=== PATIENT | female | born 1990 | race Caucasian/White ===

== ENCOUNTER 2018-05-13 10:40 | Emergency (ER) | payer SELFPAY ==
--- NOTE | 2018-05-13 11:09 | EDPHYS ---
Physician Documentation [facility] Name: Diana Alcazar Age: 28 yrs Sex: Female : 1990 Arrival Date: 05/13/2018 Time: 10:44 Bed 15 Private MD: None, None ED Physician Yves Cavanaugh HPI: 05/13 11:04 This 28 yrs old Female presents to ER via Ambulatory with complaints of Rash. snw 11:04 The patient's rash thought to be caused by tenderness to bilateral labia majora, hx of snw abscesses to same area. The rash is located on the left labia majora and right labia majora. The rash can be described as tenderness. Onset: The symptoms/episode began/occurred gradually, 1 week(s) ago, and became persistent. Severity of symptoms: At their worst the symptoms were mild moderate. Treatment given at home: sitz baths. The patient has experienced similar episodes in the past. It is unknown whether or not the patient has recently seen a physician. 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 - Social history:: Smoking status: Patient uses tobacco products, smokes one-half pack cigarettes per day. - Ebola Screening: : No symptoms or risks identified at this time. ROS: 11:02 Constitutional: Negative for fever, chills, and weight loss, Eyes: Negative for injury, snw pain, redness, and discharge, ENT: Negative for injury, pain, and discharge, Neck: Negative for injury, pain, and swelling, Cardiovascular: Negative for chest pain, palpitations, and edema, Respiratory: Negative for shortness of breath, cough, wheezing, and pleuritic chest pain, Abdomen/GI: Negative for abdominal pain, nausea, vomiting, diarrhea, and constipation, Back: Negative for injury and pain, MS/Extremity: Negative for injury and deformity, Skin: Negative for injury, rash, and discoloration, Neuro: Negative for headache, weakness, numbness, tingling, and seizure. 11:02 : Positive for of the right labia majora and left labia majora, tenderness, possible abscess. Exam: 10:59 Constitutional: This is a well developed, well nourished patient who is awake, alert, snw and in no acute distress. Head/Face: Normocephalic, atraumatic. Eyes: Pupils equal round and reactive to light, extra-ocular motions intact. Lids and lashes normal. Conjunctiva and sclera are non-icteric and not injected. Cornea within normal limits. Periorbital areas with no swelling, redness, or edema. ENT: Nares patent. No nasal discharge, no septal abnormalities noted. Tympanic membranes are normal and external auditory canals are clear. Oropharynx with no redness, swelling, or masses, exudates, or evidence of obstruction, uvula midline. Mucous membranes moist. Neck: Trachea midline, no thyromegaly or masses palpated, and no cervical lymphadenopathy. Supple, full range of motion without nuchal rigidity, or vertebral point tenderness. No Meningismus. Chest/axilla: Normal chest wall appearance and motion. Nontender with no deformity. No lesions are appreciated. Cardiovascular: Regular rate and rhythm with a normal S1 and S2. No gallops, murmurs, or rubs. Normal PMI, no JVD. No pulse deficits. Respiratory: Lungs have equal breath sounds bilaterally, clear to auscultation and percussion. No rales, rhonchi or wheezes noted. No increased work of breathing, no retractions or nasal flaring. Abdomen/GI: Soft, non-tender, with normal bowel sounds. No distension or tympany. No guarding or rebound. No evidence of tenderness throughout. Back: No spinal tenderness. No costovertebral tenderness. Full range of motion. Pelvic Exam: Normal external genitalia with tenderness to bilateral labia majora, old scarring noted. Mucoid discharge, no bleeding noted Skin: Warm, dry with normal turgor. Normal color with no rashes, no lesions, and no evidence of cellulitis. MS/ Extremity: Pulses equal, no cyanosis. Neurovascular intact. Full, normal range of motion. Neuro: Awake and alert, GCS 15, oriented to person, place, time, and situation. Cranial nerves II-XII grossly intact. Motor strength 5/5 in all extremities. Sensory grossly intact. Cerebellar exam normal. Normal gait. Psych: Awake, alert, with orientation to person, place and time. Behavior, mood, and affect are within normal limits. Vital Signs: 10:50 BP 126 / 87; Pulse 89; Resp 16 S; Temp 98.7(O); Pulse Ox 99% on R/A; Weight 63.5 kg jl7 (R); Height 5 ft. 2 in. (157.48 cm) (R); Pain 7/10; 10:50 Body Mass Index 25.61 (63.50 kg, 157.48 cm) 7 MDM: 10:53 Patient medically screened. snw 11:15 Data reviewed: vital signs, nurses notes. Data interpreted: Pulse oximetry: on room air snw is 99 %. Interpretation: normal. Test interpretation: by ED physician or midlevel provider:. Counseling: I had a detailed discussion with the patient and/or guardian regarding: the historical points, exam findings, and any diagnostic results supporting the discharge/admit diagnosis, the presence of at least one elevated blood pressure reading (>120/80) during this emergency department visit, the need for outpatient follow up, for definitive care, to return to the emergency department if symptoms worsen or persist or if there are any questions or concerns that arise at home. Special discussion: Based on the history and exam findings, there is no indication for further emergent testing or inpatient evaluation. I discussed with the patient/guardian the need to see the OB Gyne specialist for further evaluation of the symptoms. Administered Medications: 11:14 Drug: Doxycycline 100 mg Route: PO; [facility] 11:14 Follow up: Response: Medication administered at discharge. [facility] 11:14 Drug: Hibiclens 4 % 1 application Route: Topical; Site: affected area; jl7 11:14 Follow up: Response: Medication administered at discharge. 7 11:14 Drug: UltRAM 50 mg Route: PO; 7 11:14 Follow up: Response: Medication administered at discharge. 7 Disposition: 13:35 Co-signature as Attending Physician, Yves Cavanaugh MD I agree with the assessment and kdr plan of care. Disposition: 05/13/18 11:09 Discharged to Home. Impression: Cellulitis of groin. - Condition is Stable. - Discharge Instructions: Cellulitis, Hidradenitis Suppurativa, Sitz Bath. - Prescriptions for Doxycycline Hyclate 100 mg Oral Tablet - take 1 tablet by ORAL route every 12 hours; 20 tablet. - Medication Reconciliation Form, Thank You Letter, Antibiotic Education, Prescription Opioid Use form. - Work release form (05/13/18 14:46). sp - Follow up: Ela Huertas MD; When: 2 - 3 days; Reason: Recheck today's complaints, Continuance of care. Signatures: Yves Cavanaugh MD MD [facility] Stacie Barnes FNP-C CREDIT PRODUCT ANALYST-Csnw Marry Rodarte RN RN jl7 Ally Almonte sp Corrections: (The following items were deleted from the chart) 11:04 10:59 Constitutional: This is a well developed, well nourished patient who is awake, snw alert, and in no acute distress. Head/Face: Normocephalic, atraumatic. Eyes: Pupils equal round and reactive to light, extra-ocular motions intact. Lids and lashes normal. Conjunctiva and sclera are non-icteric and not injected. Cornea within normal limits. Periorbital areas with no swelling, redness, or edema. ENT: Nares patent. No nasal discharge, no septal abnormalities noted. Tympanic membranes are normal and external auditory canals are clear. Oropharynx with no redness, swelling, or masses, exudates, or evidence of obstruction, uvula midline. Mucous membranes moist. Neck: Trachea midline, no thyromegaly or masses palpated, and no cervical lymphadenopathy. Supple, full range of motion without nuchal rigidity, or vertebral point tenderness. No Meningismus. Chest/axilla: Normal chest wall appearance and motion. Nontender with no deformity. No lesions are appreciated. Cardiovascular: Regular rate and rhythm with a normal S1 and S2. No gallops, murmurs, or rubs. Normal PMI, no JVD. No pulse deficits. Respiratory: Lungs have equal breath sounds bilaterally, clear to auscultation and percussion. No rales, rhonchi or wheezes noted. No increased work of breathing, no retractions or nasal flaring. Abdomen/GI: Soft, non-tender, with normal bowel sounds. No distension or tympany. No guarding or rebound. No evidence of tenderness throughout. Back: No spinal tenderness. No costovertebral tenderness. Full range of motion. Pelvic Exam: Normal external genitalia with tenderness to bilateral labia majora, old scarring noted. Mucoid discharge, no bleeding noted Skin: Warm, dry with normal turgor. Normal color with no rashes, no lesions, and no evidence of cellulitis. MS/ Extremity: Pulses equal, no cyanosis. Neurovascular intact. Full, normal range of motion. Neuro: Awake and alert, GCS 15, oriented to person, place, time, and situation. Cranial nerves II-XII grossly intact. Motor strength 5/5 in all extremities. Sensory grossly intact. Cerebellar exam normal. Normal gait. Psych: Awake, alert, with orientation to person, place and time. Behavior, mood, and affect are within normal limits. snw 11:31 11:09 05/13/2018 11:09 Discharged to Home. Impression: Cellulitis of groin. Condition jl7 is Stable. Forms are Medication Reconciliation Form, Thank You Letter, Antibiotic Education, Prescription Opioid Use. Follow up: Ela Huertas; When: 2 - 3 days; Reason: Recheck today's complaints, Continuance of care. snw
--- NOTE | 2018-05-13 11:09 | ER ---
Nurse's Notes [facility] Name: Diana Alcazar Age: 28 yrs Sex: Female : 1990 Arrival Date: 05/13/2018 Time: 10:44 Bed 15 Private MD: None, None Diagnosis: Cellulitis of groin Presentation: 05/13 10:51 Presenting complaint: Patient states: "I have a boil on each side of my lady parts.". jl7 Transition of care: patient was not received from another setting of care. Onset of symptoms was May 12, 2018. Risk Assessment: Do you want to hurt yourself or someone else? Patient reports no desire to harm self or others. Initial Sepsis Screen: Does the patient meet any 2 criteria? No. Patient's initial sepsis screen is negative. Does the patient have a suspected source of infection? No. Patient's initial sepsis screen is negative. Care prior to arrival: None. 10:51 Method Of Arrival: Ambulatory [facility] 10:51 Acuity: DOROTHY 4 jl7 Triage Assessment: 10:50 General: Appears in no apparent distress. uncomfortable, Behavior is calm, cooperative, jl7 appropriate for age. Pain: Complains of pain in right labia majora and left labia majora Pain does not radiate. Pain currently is 7 out of 10 on a pain scale. Pain began 1 day ago. Is continuous. EENT: No signs and/or symptoms were reported regarding the EENT system. Neuro: Level of Consciousness is awake, alert, obeys commands. Cardiovascular: Patient's skin is warm and dry. Respiratory: Airway is patent Respiratory effort is even, unlabored, Respiratory pattern is regular, symmetrical. GI: No signs and/or symptoms were reported involving the gastrointestinal system. : Vaginal discharge is yellow. Derm: Skin is pink, warm \\T\\ dry. Abscess located on right labia majora and left labia majora is dime sized, has no drainage. 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 - Social history:: Smoking status: Patient uses tobacco products, smokes one-half pack cigarettes per day. - Ebola Screening: : No symptoms or risks identified at this time. Screenin:55 Abuse screen: Denies threats or abuse. Denies injuries from another. Nutritional jl7 screening: No deficits noted. Tuberculosis screening: No symptoms or risk factors identified. Fall Risk None identified. Assessment: 10:55 General: See triage assessment. jl7 Vital Signs: 10:50 BP 126 / 87; Pulse 89; Resp 16 S; Temp 98.7(O); Pulse Ox 99% on R/A; Weight 63.5 kg jl7 (R); Height 5 ft. 2 in. (157.48 cm) (R); Pain 7/10; 10:50 Body Mass Index 25.61 (63.50 kg, 157.48 cm) jl7 ED Course: 10:44 Patient arrived in ED. mr 10:45 None, None is Private Physician. mr 10:49 Marry Rodarte RN is Primary Nurse. jl7 10:50 Arm band placed on right wrist. jl7 10:52 Stacie Barnes FNP-C is PHCP. snw 10:52 Yves Cavanaugh MD is Attending Physician. snw 10:52 Triage completed. jl7 10:55 Patient has correct armband on for positive identification. Placed in gown. Bed in low jl7 position. Call light in reach. Pulse ox on. NIBP on. 10:55 Assist provider with pelvic exam:. Patient did not have IV access during this emergency jl7 room visit. 11:06 Ela Huertas MD is Referral Physician. snw Administered Medications: 11:14 Drug: Doxycycline 100 mg Route: PO; jl7 11:14 Follow up: Response: Medication administered at discharge. jl7 11:14 Drug: Hibiclens 4 % 1 application Route: Topical; Site: affected area; jl7 11:14 Follow up: Response: Medication administered at discharge. jl7 11:14 Drug: UltRAM 50 mg Route: PO; jl7 11:14 Follow up: Response: Medication administered at discharge. jl7 Outcome: 11:09 Discharge ordered by . snw 11:20 Discharged to home ambulatory. jl7 11:20 Condition: stable 11:20 Discharge instructions given to patient, Instructed on discharge instructions, follow up and referral plans. medication usage, Demonstrated understanding of instructions, follow-up care, medications, Prescriptions given X 1. 11:31 Patient left the ED. jl7 Signatures: Stacie Barnes, GUIDE EXCURSION-C GUIDE EXCURSION-[place] Veronique Azar Jahala, RN RN jl7
[2018-05-13] MEDS ORDERED: TRAMADOL HCL 50 MG TAB ONE (11:13)
[2018-05-13] MEDS ORDERED: DOXYCYCLINE 100 MG CAP PO ONE (11:13)
== END 2018-05-13 11:31 | disposition home or self-care (01) ==
LOC: ER 10:40
DX: L03.314 Cellulitis of groin (principal); F17.210 Nicotine dependence, cigarettes, uncomplicated; Z88.8 Allergy status to other drugs, medicaments and biological substances
CPT/HCPCS: 99284

== ENCOUNTER 2018-05-17 08:59 | Emergency (ER) | payer SELFPAY ==
--- NOTE | 2018-05-17 09:53 | ER ---
Nurse's Notes [facility] Name: Diana Alcazar Age: 28 yrs Sex: Female : 1990 Arrival Date: 05/17/2018 Time: 09:02 Bed 8 Private MD: None, None Diagnosis: Hidradenitis suppurativa Presentation: 05/17 09:30 Presenting complaint: Presenting complaint: Patient states: was seen here over the iw weekend, had abscess to both sides of her groin, was told that it wasn't ready to be lanced and was sent home with antibiotics, wa snot able to fill abx because she couldn't afford it, abscess opened up the next day and now she started vomiting and doesn't feel well, denies fever or chills. 09:30 Transition of care: patient was not received from another setting of care. Onset of symptoms was May 13, 2018. Risk Assessment: Do you want to hurt yourself or someone else? Patient reports no desire to harm self or others. Initial Sepsis Screen: Does the patient meet any 2 criteria? No. Patient's initial sepsis screen is negative. Does the patient have a suspected source of infection? No. Patient's initial sepsis screen is negative. Care prior to arrival: None. 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 - Social history:: Smoking status: Patient uses tobacco products, smokes one-half pack cigarettes per day. - Ebola Screening: : Patient negative for fever greater than or equal to 101.5 degrees Fahrenheit, and additional compatible Ebola Virus Disease symptoms Patient denies exposure to infectious person Patient denies travel to an Ebola-affected area in the 21 days before illness onset No symptoms or risks identified at this time. - Family history:: not pertinent. Screenin:00 Abuse screen: Denies threats or abuse. Denies injuries from another. Nutritional ph screening: No deficits noted. Tuberculosis screening: No symptoms or risk factors identified. Fall Risk None identified. Assessment: 09:30 General: Appears in no apparent distress. uncomfortable, well groomed, Behavior is ph calm, cooperative, appropriate for age, Denies fever, chills. Pain: Complains of pain in groin. Neuro: Level of Consciousness is awake, alert, obeys commands, Oriented to person, place, time, situation. Cardiovascular: Capillary refill < 3 seconds Patient's skin is warm and dry. Respiratory: Airway is patent Respiratory effort is even, unlabored, Respiratory pattern is regular, symmetrical. GI: Abdomen is round non-distended, Bowel sounds present X 4 quads. Abd is soft and non tender X 4 quads. Reports nausea, vomiting, Patient currently denies abdominal pain, diarrhea. : No signs and/or symptoms were reported regarding the genitourinary system. Derm: Skin is healthy with good turgor, Skin is pink, warm \T\ dry. Abscess located on right labia majora and left labia majora is dime sized, has no drainage, is red, is raised. Musculoskeletal: Circulation, motion, and sensation intact. Range of motion: intact in all extremities. Vital Signs: 09:35 BP 115 / 90; Pulse 92; Resp 16; Temp 98.2(TE); Pulse Ox 99% on R/A; Weight 63.5 kg; iw Height 5 ft. 2 in. (157.48 cm); Pain 3/10; 09:35 Body Mass Index 25.60 (63.50 kg, 157.48 cm) iw ED Course: 09:02 Patient arrived in ED. mr 09:02 None, None is Private Physician. mr 09:29 Leti Lu, ROD is Primary Nurse. ph 09:31 Curtis Messer MD is Attending Physician. nathan 09:35 Triage completed. iw 09:35 Arm band placed on. iw 09:51 Hossein Nye MD is Referral Physician. nathan 10:00 Patient has correct armband on for positive identification. Placed in gown. Bed in low ph position. Call light in reach. Side rails up X 1. Pulse ox on. NIBP on. Warm blanket given. 10:17 No provider procedures requiring assistance completed. Patient did not have IV access ph during this emergency room visit. Administered Medications: 10:16 Drug: Doxycycline 200 mg Route: PO; ph 10:17 Follow up: Response: No adverse reaction; Medication administered at discharge. ph 10:16 Drug: Bactrim (160 mg-800 mg (DS) 1 tablet Route: PO; ph 10:17 Follow up: Response: No adverse reaction; Medication administered at discharge. ph 10:16 Drug: Zofran 4 mg Route: PO; ph 11:00 Follow up: Response: No adverse reaction ph Outcome: 09:53 Discharge ordered by . [facility] 10:17 Patient left the ED. ph 10:17 Discharged to home ambulatory. ph 10:17 Condition: good 10:17 Discharge instructions given to patient, Instructed on discharge instructions, follow up and referral plans. medication usage, Demonstrated understanding of instructions, follow-up care, medications, Prescriptions given X 4. Signatures: Curtis Messer MD MD cha Rivera, Maria mr Williams, Irene, RN RN Leti Lu RN RN ph Corrections: (The following items were deleted from the chart) 09:35 09:30 Presenting complaint: iw iw 09:56 09:35 BP 115 / 90; Pulse 92bpm; Resp 16bpm; Pulse Ox 99% RA; 63.5 kg; Height 5 ft. 2 iw in.; BMI: 25.6; Pain 3/10; iw 13: 13:06 Abuse screen: Denies threats or abuse. Denies injuries from another. ph ph : 13:06 Nutritional screening: No deficits noted. ph ph : 13:06 Tuberculosis screening: No symptoms or risk factors identified. ph ph : 13:06 Fall Risk None identified. ph ph
--- NOTE | 2018-05-17 09:53 | EDPHYS ---
Physician Documentation [facility] Name: Diana Alcazar Age: 28 yrs Sex: Female : 1990 Arrival Date: 05/17/2018 Time: 09:02 Bed 8 Private MD: None, None ED Physician Curtis Messer HPI: 05/17 09:47 This 28 yrs old Female presents to ER via Ambulatory with complaints of nathan Abscess, Vomiting. 09:47 The patient presents with an abscess of the groin. Description: swollen. Onset: The nathan symptoms/episode began/occurred 2 day(s) ago. Possible cause(s): unknown. Associated signs and symptoms: The patient has no apparent associated signs or symptoms. Modifying factors: the symptoms are alleviated by remaining still, the symptoms are aggravated by movement, walking, pressure, squeezing the lesion and expressing the contents. Severity of symptoms: At their worst the symptoms were mild, in the emergency department the symptoms are unchanged. The patient has not experienced similar symptoms in the past. 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 - Social history:: Smoking status: Patient uses tobacco products, smokes one-half pack cigarettes per day. - Ebola Screening: : Patient negative for fever greater than or equal to 101.5 degrees Fahrenheit, and additional compatible Ebola Virus Disease symptoms Patient denies exposure to infectious person Patient denies travel to an Ebola-affected area in the 21 days before illness onset No symptoms or risks identified at this time. - Family history:: not pertinent. ROS: 09:47 Constitutional: Negative for fever, chills, and weight loss, Eyes: Negative for injury, nathan pain, redness, and discharge, ENT: Negative for injury, pain, and discharge, Neck: Negative for injury, pain, and swelling, Cardiovascular: Negative for chest pain, palpitations, and edema, Respiratory: Negative for shortness of breath, cough, wheezing, and pleuritic chest pain, Abdomen/GI: Negative for abdominal pain, nausea, vomiting, diarrhea, and constipation, Back: Negative for injury and pain, : Negative for injury, bleeding, discharge, and swelling, MS/Extremity: Negative for injury and deformity, Neuro: Negative for headache, weakness, numbness, tingling, and seizure, Psych: Negative for depression, anxiety, suicide ideation, homicidal ideation, and hallucinations, Allergy/Immunology: Negative for hives, rash, and allergies, Endocrine: Negative for neck swelling, polydipsia, polyuria, polyphagia, and marked weight changes, Hematologic/Lymphatic: Negative for swollen nodes, abnormal bleeding, and unusual bruising. 09:47 Skin: Positive for erythema. Exam: 09:47 Constitutional: This is a well developed, well nourished patient who is awake, alert, nathan and in no acute distress. Head/Face: Normocephalic, atraumatic. Eyes: Pupils equal round and reactive to light, extra-ocular motions intact. Lids and lashes normal. Conjunctiva and sclera are non-icteric and not injected. Cornea within normal limits. Periorbital areas with no swelling, redness, or edema. ENT: Nares patent. No nasal discharge, no septal abnormalities noted. Tympanic membranes are normal and external auditory canals are clear. Oropharynx with no redness, swelling, or masses, exudates, or evidence of obstruction, uvula midline. Mucous membranes moist. Neck: Trachea midline, no thyromegaly or masses palpated, and no cervical lymphadenopathy. Supple, full range of motion without nuchal rigidity, or vertebral point tenderness. No Meningismus. Chest/axilla: Normal chest wall appearance and motion. Nontender with no deformity. No lesions are appreciated. Cardiovascular: Regular rate and rhythm with a normal S1 and S2. No gallops, murmurs, or rubs. Normal PMI, no JVD. No pulse deficits. Respiratory: Lungs have equal breath sounds bilaterally, clear to auscultation and percussion. No rales, rhonchi or wheezes noted. No increased work of breathing, no retractions or nasal flaring. Abdomen/GI: Soft, non-tender, with normal bowel sounds. No distension or tympany. No guarding or rebound. No evidence of tenderness throughout. Back: No spinal tenderness. No costovertebral tenderness. Full range of motion. MS/ Extremity: Pulses equal, no cyanosis. Neurovascular intact. Full, normal range of motion. Neuro: Awake and alert, GCS 15, oriented to person, place, time, and situation. Cranial nerves II-XII grossly intact. Motor strength 5/5 in all extremities. Sensory grossly intact. Cerebellar exam normal. Normal gait. Psych: Awake, alert, with orientation to person, place and time. Behavior, mood, and affect are within normal limits. 09:47 Skin: cellulitis, that is minimal, induration, that is mild is noted, injury, is not appreciated, no rash present. Vital Signs: 09:35 BP 115 / 90; Pulse 92; Resp 16; Temp 98.2(TE); Pulse Ox 99% on R/A; Weight 63.5 kg; iw Height 5 ft. 2 in. (157.48 cm); Pain 3/10; 09:35 Body Mass Index 25.60 (63.50 kg, 157.48 cm) iw MDM: 09:31 Patient medically screened. [facility] 09:47 Data reviewed: vital signs, nurses notes, lab test result(s). [facility] 05/17 10:01 Order name: Urine Dipstick--Ancillary (enter results) [facility] 05/17 10:01 Order name: Urine --Ancillary (enter results) [facility] 05/17 09:47 Order name: Urine Dipstick-Ancillary (obtain specimen); Complete Time: 09:59 [facility] 05/17 09:47 Order name: Urine Test (obtain specimen); Complete Time: 09:59 [facility] Administered Medications: 10:16 Drug: Doxycycline 200 mg Route: PO; ph 10:17 Follow up: Response: No adverse reaction; Medication administered at discharge. ph 10:16 Drug: Bactrim (160 mg-800 mg (DS) 1 tablet Route: PO; ph 10:17 Follow up: Response: No adverse reaction; Medication administered at discharge. ph 10:16 Drug: Zofran 4 mg Route: PO; ph 11:00 Follow up: Response: No adverse reaction ph Disposition: 05/17/18 09:53 Discharged to Home. Impression: Hidradenitis suppurativa. - Condition is Stable. - Discharge Instructions: Hidradenitis Suppurativa, Sitz Bath. - Prescriptions for Tylenol- Codeine #3 300-30 mg Oral Tablet - take 2 tablet by ORAL route every 6 hours As needed; 30 tablet. Bactrim DS 800- 160 mg Oral Tablet - take 1 tablet by ORAL route every 12 hours for 10 days; 20 tablet. Doxycycline Monohydrate 100 mg Oral Tablet - take 1 tablet by ORAL route every 12 hours for 10 days; 20 tablet. Zofran 4 mg Oral Tablet - take 1 tablet by ORAL route every 12 hours As needed; 20 tablet. - Medication Reconciliation Form, Thank You Letter, Antibiotic Education, Prescription Opioid Use, Work release form form. - Follow up: Private Physician; When: 2 - 3 days; Reason: Recheck today's complaints, Continuance of care, Re-evaluation by your physician. Follow up: Hossein Nye MD; When: 2 - 3 days; Reason: Recheck today's complaints, Continuance of care, Re-evaluation by your physician. - Problem is new. - Symptoms have improved. Signatures: Dispatcher [employer] EDCurtis Cross MD MD cha Williams, Irene, RN RN Leti Lu RN RN ph Corrections: (The following items were deleted from the chart) 10:17 09:53 05/17/2018 09:53 Discharged to Home. Impression: Hidradenitis suppurativa. ph Condition is Stable. Forms are Medication Reconciliation Form, Thank You Letter, Antibiotic Education, Prescription Opioid Use. Follow up: Private Physician; When: 2 - 3 days; Reason: Recheck today's complaints, Continuance of care, Re-evaluation by your physician. Follow up: Hossein Nye; When: 2 - 3 days; Reason: Recheck today's complaints, Continuance of care, Re-evaluation by your physician. Problem is new. Symptoms have improved. nathan
[2018-05-17 10:05] LABS: Urine Blood NEGATIVE (NEG); Urine Glucose NEGATIVE (NEG); Urine Protein 2+ (NEG); Urine Specific Gravity 1.025 (1.005-1.030)
[2018-05-17] MEDS ORDERED: SMZ./TMP. 800/160 MG TABLET ONE (10:12)
[2018-05-17] MEDS ORDERED: DOXYCYCLINE 100 MG CAP PO ONE (10:13)
[2018-05-17] MEDS ORDERED: ONDANSETRON 4 MG (ODT) TAB ONE (10:13)
== END 2018-05-17 10:17 | disposition home or self-care (01) ==
LOC: ER 08:59
DX: H81.42 Vertigo of central origin, left ear (principal); H66.002 Acute suppurative otitis media without spontaneous rupture of ear drum, left ear
CPT/HCPCS: 81003; 81025; 99283

== ENCOUNTER 2018-10-08 11:05 | Emergency (ER) | payer SELFPAY ==
[2018-10-08] MEDS ORDERED: MAGNESIUM CITRATE 300 ML BOT ONE (11:41)
[2018-10-08] MEDS ORDERED: ONDANSETRON 4 MG (ODT) TAB ONE (11:56)
[2018-10-08 12:44] LABS: Urine Blood NEGATIVE (NEG); Urine Glucose NEGATIVE (NEG); Urine Protein NEGATIVE (NEG)
--- NOTE | 2018-10-08 12:46 | ER ---
Nurse's Notes [facility] Name: Diana Alcazar Age: 28 yrs Sex: Female : 1990 Arrival Date: 10/08/2018 Time: 11:10 Bed 7 Private MD: None, None Diagnosis: Generalized abdominal pain;Constipation Presentation: 10/08 11:13 Presenting complaint: Patient states: I think I am having an IBS flare, usually they la1 give me bentyl 40mg. I also think I have chiggers. Transition of care: patient was not received from another setting of care. Onset of symptoms was October 08, 2018. Risk Assessment: Do you want to hurt yourself or someone else? Patient reports no desire to harm self or others. Initial Sepsis Screen: Does the patient meet any 2 criteria? No. Patient's initial sepsis screen is negative. Does the patient have a suspected source of infection? No. Patient's initial sepsis screen is negative. Care prior to arrival: None. 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 - Social history:: Smoking status: Patient/guardian denies using tobacco. - Ebola Screening: : No symptoms or risks identified at this time. Screenin:32 Abuse screen: Denies threats or abuse. Denies injuries from another. Nutritional hb screening: No deficits noted. Tuberculosis screening: No symptoms or risk factors identified. Fall Risk None identified. Assessment: 11:32 General: Appears in no apparent distress. Behavior is calm, cooperative. Pain: Pain hb currently is 4 out of 10 on a pain scale. Neuro: Level of Consciousness is awake, alert, obeys commands, Oriented to person, place, time, situation. Cardiovascular: Capillary refill < 3 seconds Patient's skin is warm and dry. Respiratory: Airway is patent Respiratory effort is even, unlabored, Respiratory pattern is regular, symmetrical, Breath sounds are clear bilaterally. GI: Abdomen is non-distended, Bowel sounds present X 4 quads. Abd is soft and non tender X 4 quads. Reports lower abdominal pain, upper abdominal pain, constipation. : No signs and/or symptoms were reported regarding the genitourinary system. EENT: No signs and/or symptoms were reported regarding the EENT system. Derm: Skin is pink, warm \\T\\ dry. Musculoskeletal: No signs and/or symptoms reported regarding the musculoskeletal system. 12:30 Reassessment: Patient appears in no apparent distress at this time. No changes from hb previously documented assessment. Patient and/or family updated on plan of care and expected duration. Pain level reassessed. Patient is alert, oriented x 3, equal unlabored respirations, skin warm/dry/pink. Vital Signs: 11:14 BP 108 / 79; Pulse 96; Resp 16; Temp 98.2; Pulse Ox 98% on R/A; Weight 57.61 kg; Height la1 5 ft. 4 in. (162.56 cm); 12:00 BP 112 / 78; Pulse 88; Resp 15; Pulse Ox 100% on R/A; hb 13:00 BP 112 / 76; Pulse 88; Resp 16; Pulse Ox 100% on R/A; hb 11:14 Body Mass Index 21.80 (57.61 kg, 162.56 cm) la1 ED Course: 11:10 Patient arrived in ED. mr 11:10 None, None is Private Physician. mr 11:13 Triage completed. la1 11:14 Mookie Avila, RN is Primary Nurse. la1 11:14 Arm band placed on left wrist. la1 11:17 Singh Burnett, RN is Primary Nurse. sg 11:17 Jossue Roberts MD is Attending Physician. gs 11:26 Bed in low position. Call light in reach. Side rails up X 1. Side rails up X2. Warm jp3 blanket given. Pillow given. Pulse ox on. NIBP on. 11:26 Urine collected: clean catch specimen, clear, silvia colored, Amount Voided: 80mL. jp3 11:30 Billie Walsh, ROD is Primary Nurse. hb 12:44 Jordan Ulloa MD is Referral Physician. gs 13:08 No provider procedures requiring assistance completed. Patient did not have IV access hb during this emergency room visit. Administered Medications: 11:35 Drug: Magnesium Citrate Liquid 300 ml Route: PO; hb 12:22 Follow up: Response: No adverse reaction hb Outcome: 12:45 Discharge ordered by . 13:08 Discharged to home ambulatory, with family. 13:08 Condition: stable 13:08 Discharge instructions given to patient, Instructed on discharge instructions, follow up and referral plans. medication usage, Demonstrated understanding of instructions, follow-up care, medications, Prescriptions given X 1. 13:09 Patient left the ED. Signatures: Singh Burnett RN RN Doe mr Austin, ROD Damico RN la1 Billie Walsh RN RN Jossue Roberts MD MD gs Pisarski, Jacob jp3
--- NOTE | 2018-10-08 12:46 | EDPHYS ---
Physician Documentation [facility] Name: Diana Alcazar Age: 28 yrs Sex: Female : 1990 Arrival Date: 10/08/2018 Time: 11:10 Bed 7 Private MD: None, None ED Physician Jossue Roberts HPI: 10/08 12:32 This 28 yrs old Female presents to ER via Ambulatory with complaints of gs Abdominal Pain. 12:32 The patient presents with abdominal pain that is diffuse. Onset: The symptoms/episode gs began/occurred 1 week(s) ago. Associated signs and symptoms: Pertinent positives: constipation. Associated signs and symptoms: Pertinent negatives: nausea and vomiting, blood in stools, chest pain, diarrhea, palpitations, shortness of breath, vomiting blood. The symptoms are described as crampy. Modifying factors: The symptoms are alleviated by nothing, the symptoms are aggravated by nothing. Severity of pain: At its worst the pain was moderate in the emergency department the pain has improved markedly. The patient has experienced similar episodes in the past, chronically. 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 - Social history:: Smoking status: Patient/guardian denies using tobacco. - Ebola Screening: : No symptoms or risks identified at this time. ROS: 12:32 All other systems are negative. gs Exam: 12:32 Head/Face: Normocephalic, atraumatic. Eyes: Pupils equal round and reactive to light, gs extra-ocular motions intact. Lids and lashes normal. Conjunctiva and sclera are non-icteric and not injected. Cornea within normal limits. Periorbital areas with no swelling, redness, or edema. ENT: Nares patent. No nasal discharge, no septal abnormalities noted. Tympanic membranes are normal and external auditory canals are clear. Oropharynx with no redness, swelling, or masses, exudates, or evidence of obstruction, uvula midline. Mucous membranes moist. Neck: Trachea midline, no thyromegaly or masses palpated, and no cervical lymphadenopathy. Supple, full range of motion without nuchal rigidity, or vertebral point tenderness. No Meningismus. Chest/axilla: Normal chest wall appearance and motion. Nontender with no deformity. No lesions are appreciated. Cardiovascular: Regular rate and rhythm with a normal S1 and S2. No gallops, murmurs, or rubs. Normal PMI, no JVD. No pulse deficits. Respiratory: Lungs have equal breath sounds bilaterally, clear to auscultation and percussion. No rales, rhonchi or wheezes noted. No increased work of breathing, no retractions or nasal flaring. Abdomen/GI: Soft, non-tender, with normal bowel sounds. No distension or tympany. No guarding or rebound. No evidence of tenderness throughout. Back: No spinal tenderness. No costovertebral tenderness. Full range of motion. Skin: Warm, dry with normal turgor. Normal color with no rashes, no lesions, and no evidence of cellulitis. MS/ Extremity: Pulses equal, no cyanosis. Neurovascular intact. Full, normal range of motion. 12:32 Constitutional: The patient appears alert, awake. 12:44 Neuro: Awake and alert, GCS 15, oriented to person, place, time, and situation. gs Cranial nerves II-XII grossly intact. Motor strength 5/5 in all extremities. Sensory grossly intact. Cerebellar exam normal. Normal gait. Vital Signs: 11:14 BP 108 / 79; Pulse 96; Resp 16; Temp 98.2; Pulse Ox 98% on R/A; Weight 57.61 kg; Height la1 5 ft. 4 in. (162.56 cm); 12:00 BP 112 / 78; Pulse 88; Resp 15; Pulse Ox 100% on R/A; hb 13:00 BP 112 / 76; Pulse 88; Resp 16; Pulse Ox 100% on R/A; hb 11:14 Body Mass Index 21.80 (57.61 kg, 162.56 cm) la1 MDM: 11:26 Patient medically screened. gs 12:32 Data reviewed: vital signs, nurses notes. gs 12:44 Differential diagnosis: non-specific abd pain, constipation, chronic pain. gs 12:46 Response to treatment: the patient's symptoms have mildly improved after treatment, and gs as a result, I will discharge patient. ED course: pt states needs a bentyl rx understands risks with constipation says has ibs-c and bentyl does work. 10/08 11:31 Order name: Urine Dipstick--Ancillary (enter results); Complete Time: 12:53 eb 10/08 11:31 Order name: Urine --Ancillary (enter results); Complete Time: 12:53 eb Administered Medications: 11:35 Drug: Magnesium Citrate Liquid 300 ml Route: PO; hb 12:22 Follow up: Response: No adverse reaction hb Disposition: 10/08/18 12:45 Discharged to Home. Impression: Generalized abdominal pain, Constipation. - Condition is Stable. - Discharge Instructions: Constipation, Adult, [id number]. - Prescriptions for Bentyl 10 mg Oral Capsule - take 1 capsule by ORAL route every 6 hours As needed; 15 capsule. - Medication Reconciliation Form, Thank You Letter, Antibiotic Education, Prescription Opioid Use form. - Follow up: Jordan Ulloa MD; When: 2 - 3 days; Reason: Re-evaluation by your physician. - Problem is an ongoing problem. - Symptoms have improved. Signatures: Dispatcher [employer] EDMS Mookie Avila RN RN la1 Billie Walsh RN RN RobertsJossue MD MD Corrections: (The following items were deleted from the chart) 12:45 12:45 10/08/2018 12:45 Discharged to Home. Impression: Generalized abdominal pain; gs Constipation. Condition is Stable. Forms are Medication Reconciliation Form, Thank You Letter, Antibiotic Education, Prescription Opioid Use. Follow up: Jordan Ulloa; When: 2 - 3 days; Reason: Re-evaluation by your physician. 13:09 12:45 10/08/2018 12:45 Discharged to Home. Impression: Generalized abdominal pain; hb Constipation. Condition is Stable. Forms are Medication Reconciliation Form, Thank You Letter, Antibiotic Education, Prescription Opioid Use. Follow up: Jordan Ulloa; When: 2 - 3 days; Reason: Re-evaluation by your physician. Problem is an ongoing problem. Symptoms have improved.
== END 2018-10-08 13:09 | disposition home or self-care (01) ==
LOC: ER 11:05
DX: K59.00 Constipation, unspecified (principal); R10.84 Generalized abdominal pain
CPT/HCPCS: 81003; 81025; 99284

== ENCOUNTER 2019-11-11 11:11 | Emergency (ER) | payer SELFPAY ==
--- NOTE | 2019-11-11 12:11 | EDPHYS ---
Physician Documentation [facility] Name: Diana Alcazar Age: 29 yrs Sex: Female : 1990 Arrival Date: 11/11/2019 Time: 11:13 Bed 23 Private MD: None, None ED Physician vYes Cavanaugh HPI: 11/11 12:09 This 29 yrs old Female presents to ER via Ambulatory with complaints of Flu kb Symptoms. 12:09 The patient presents with sore throat. The patient describes throat pain as constant. kb Onset: The symptoms/episode began/occurred last night. Severity of symptoms: At their worst the symptoms were moderate, in the emergency department the symptoms are unchanged. Modifying factors: The symptoms are alleviated by nothing, the symptoms are aggravated by swallowing, Patient's oral intake status: good. Associated signs and symptoms: Pertinent positives: fever, flu-like symptoms, myalgias, Sore throat. The patient has not experienced similar symptoms in the past. The patient has not recently seen a physician. Pt reports sore throat, fever, chills and body aches since last night. 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 - Social history:: Smoking status: Smoking status: Patient uses tobacco products, smokes one-half pack cigarettes per day. - Ebola Screening: : Patient negative for fever greater than or equal to 101.5 degrees Fahrenheit, and additional compatible Ebola Virus Disease symptoms Patient denies exposure to infectious person Patient denies travel to an Ebola-affected area in the 21 days before illness onset No symptoms or risks identified at this time. ROS: 12:08 Neck: Negative for injury, pain, and swelling, Cardiovascular: Negative for chest pain, kb palpitations, and edema, Respiratory: Negative for shortness of breath, cough, wheezing, and pleuritic chest pain, Abdomen/GI: Negative for abdominal pain, nausea, vomiting, diarrhea, and constipation, MS/Extremity: Negative for injury and deformity, Skin: Negative for injury, rash, and discoloration, Neuro: Negative for headache, weakness, numbness, tingling, and seizure. 12:08 Constitutional: Positive for body aches, chills, fatigue, fever, malaise. 12:08 ENT: Positive for sore throat. Exam: 12:08 Constitutional: This is a well developed, well nourished patient who is awake, alert, kb and in no acute distress. Head/Face: Normocephalic, atraumatic. Neck: Trachea midline, no thyromegaly or masses palpated, and no cervical lymphadenopathy. Supple, full range of motion without nuchal rigidity, or vertebral point tenderness. No Meningismus. Chest/axilla: Normal chest wall appearance and motion. Nontender with no deformity. No lesions are appreciated. Cardiovascular: Regular rate and rhythm with a normal S1 and S2. No gallops, murmurs, or rubs. Normal PMI, no JVD. No pulse deficits. Respiratory: Lungs have equal breath sounds bilaterally, clear to auscultation and percussion. No rales, rhonchi or wheezes noted. No increased work of breathing, no retractions or nasal flaring. Abdomen/GI: Soft, non-tender, with normal bowel sounds. No distension or tympany. No guarding or rebound. No evidence of tenderness throughout. Skin: Warm, dry with normal turgor. Normal color with no rashes, no lesions, and no evidence of cellulitis. MS/ Extremity: Pulses equal, no cyanosis. Neurovascular intact. Full, normal range of motion. Neuro: Awake and alert, GCS 15, oriented to person, place, time, and situation. Cranial nerves II-XII grossly intact. Motor strength 5/5 in all extremities. Sensory grossly intact. Cerebellar exam normal. Normal gait. 12:08 ENT: Posterior pharynx: Airway: normal, Tonsils: with erythema, Uvula: normal, midline, swelling, is not appreciated, erythema, that is marked, exudate, that is mild. Vital Signs: 11:26 BP 119 / 75; Pulse 118; Resp 18 S; Temp 99.7(TE); Pulse Ox 100% on R/A; Weight 53.52 iw kg; Height 5 ft. 3 in. (160.02 cm); Pain 6/10; 11:26 Body Mass Index 20.90 (53.52 kg, 160.02 cm) iw MDM: 11:58 Patient medically screened. kb 12:08 Data reviewed: vital signs, nurses notes. Data interpreted: Pulse oximetry: on room air kb is 100 %. Interpretation: normal. 12:09 Counseling: I had a detailed discussion with the patient and/or guardian regarding: the kb historical points, exam findings, and any diagnostic results supporting the discharge/admit diagnosis, lab results, the need for outpatient follow up, a family practitioner, to return to the emergency department if symptoms worsen or persist or if there are any questions or concerns that arise at home. 11/11 11:29 Order name: Strep; Complete Time: 12:04 iw 11/11 11:29 Order name: Flu; Complete Time: 12:05 iw 11/11 12:05 Order name: Throat Culture EDMS Administered Medications: 12:20 Drug: GI Cocktail without - (Maalox Suspension 30 ml, Lidocaine Liquid 2 % 15 iw ml) Route: PO; Disposition: 15:30 Co-signature as Attending Physician, Yves Cavanaugh MD I agree with the assessment and kdr plan of care. Disposition: 11/11/19 12:10 Discharged to Home. Impression: Acute pharyngitis. - Condition is Stable. - Discharge Instructions: Pharyngitis, [id number], Sore Throat, [id number]. - Medication Reconciliation Form, Thank You Letter, Antibiotic Education, Prescription Opioid Use form. - Follow up: Emergency Department; When: As needed; Reason: Worsening of condition. Follow up: Private Physician; When: 2 - 3 days; Reason: Recheck today's complaints, Continuance of care, Re-evaluation by your physician. Signatures: Dispatcher [employer] EDMS Marichuy Nye, IRONING MACHINE OPERATOR-C [facility]-Yves Ruano MD MD kdr Janneth Briggs RN RN iw Corrections: (The following items were deleted from the chart) 12:27 12:10 11/11/2019 12:10 Discharged to Home. Impression: Acute pharyngitis. Condition is iw Stable. Forms are Medication Reconciliation Form, Thank You Letter, Antibiotic Education, Prescription Opioid Use. Follow up: Emergency Department; When: As needed; Reason: Worsening of condition. Follow up: Private Physician; When: 2 - 3 days; Reason: Recheck today's complaints, Continuance of care, Re-evaluation by your physician. kb
--- NOTE | 2019-11-11 12:11 | ER ---
Nurse's Notes [facility] Name: Diana Alcazar Age: 29 yrs Sex: Female : 1990 Arrival Date: 11/11/2019 Time: 11:13 Bed 23 Private MD: None, None Diagnosis: Acute pharyngitis Presentation: 11/11 11:25 Presenting complaint: Patient states: fever, sore throat, body aches since last night. iw Transition of care: patient was not received from another setting of care. Onset of symptoms was November 10, 2019. Risk Assessment: Do you want to hurt yourself or someone else? Patient reports no desire to harm self or others. Initial Sepsis Screen: Does the patient meet any 2 criteria? No. Patient's initial sepsis screen is negative. Does the patient have a suspected source of infection? No. Patient's initial sepsis screen is negative. Care prior to arrival: None. 11:25 Method Of Arrival: Ambulatory iw 11:25 Acuity: DOROTHY 4 iw Triage Assessment: 12:20 General: Appears in no apparent distress. Behavior is calm, cooperative. 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 - Social history:: Smoking status: Smoking status: Patient uses tobacco products, smokes one-half pack cigarettes per day. - Ebola Screening: : Patient negative for fever greater than or equal to 101.5 degrees Fahrenheit, and additional compatible Ebola Virus Disease symptoms Patient denies exposure to infectious person Patient denies travel to an Ebola-affected area in the 21 days before illness onset No symptoms or risks identified at this time. Screenin:35 Abuse screen: Denies threats or abuse. Denies injuries from another. Nutritional iw screening: No deficits noted. Tuberculosis screening: No symptoms or risk factors identified. Fall Risk None identified. Assessment: 11:35 General: Appears in no apparent distress. Behavior is calm, cooperative. General: iw Reports fever for feeling ill for. Pain: Complains of pain in body aches. Neuro: Level of Consciousness is awake, alert, obeys commands, Oriented to person, place, time, situation. Cardiovascular: Patient's skin is warm and dry. Respiratory: Respiratory effort is even, unlabored, Respiratory pattern is regular, symmetrical. Derm: Skin is intact, is healthy with good turgor. Musculoskeletal: Range of motion: intact in all extremities. Vital Signs: 11:26 BP 119 / 75; Pulse 118; Resp 18 S; Temp 99.7(TE); Pulse Ox 100% on R/A; Weight 53.52 iw kg; Height 5 ft. 3 in. (160.02 cm); Pain 6/10; 11:26 Body Mass Index 20.90 (53.52 kg, 160.02 cm) iw ED Course: 11:13 Patient arrived in ED. mr 11:13 None, None is Private Physician. mr 11:26 Triage completed. iw 11:26 Arm band placed on. iw 11:35 Patient has correct armband on for positive identification. iw 11:35 No provider procedures requiring assistance completed. Patient did not have IV access iw during this emergency room visit. 11:36 Mar[facility]C [facility] kb 11:36 Yves Cavanaugh MD is Attending Physician. kb 11:56 Janneth Briggs, ROD is Primary Nurse. iw Administered Medications: 12:20 Drug: GI Cocktail without - (Maalox Suspension 30 ml, Lidocaine Liquid 2 % 15 iw ml) Route: PO; Outcome: 12:10 Discharge ordered by MD. kb 12:26 Discharged to home ambulatory, with family. iw 12:26 Condition: good 12:26 Discharge instructions given to patient, family, Instructed on discharge instructions, follow up and referral plans. Demonstrated understanding of instructions, follow-up care. 12:27 Patient left the ED. iw Signatures: Marichuy Nye FNP-C FNP-Mary Hutson mr Janneth Briggs, RN RN iw
[2019-11-11] MEDS ORDERED: MAGNE/ALUM HYDROXD 30 ML UCUP ONE (12:16)
[2019-11-11] MEDS ORDERED: LIDOCAINE VISCOUS 2% SOLN 15 ML UDC ONE (12:16)
[2019-11-11 12:39] VITALS: BP 119/75; TEMP 99.7; O2SAT 100
== END 2019-11-11 12:27 | disposition home or self-care (01) ==
LOC: ER 11:11
DX: J02.9 Acute pharyngitis, unspecified (principal); F17.210 Nicotine dependence, cigarettes, uncomplicated; Z91.048 Other nonmedicinal substance allergy status
CPT/HCPCS: 87070; 87081; 87804; 99283